=== PATIENT | male | born 1980 | race Caucasian/White ===

== ENCOUNTER 2023-02-02 02:48 | Outpatient (CLI) | payer SELFPAY | END 2023-02-02 02:49 | disposition critical access hospital (66) | LOC: EMS 02:48 | DX: S59.902A Unspecified injury of left elbow, initial encounter (principal); W06.XXXA Fall from bed, initial encounter; Y92.89 Other specified places as the place of occurrence of the external cause | CPT/HCPCS: A0425; A0429 ==

== ENCOUNTER 2023-02-02 03:07 | Emergency (ER) | payer SELFPAY ==
--- NOTE | 2023-02-02 03:19 | ED Physician Documentation ---
History of Present Illness - Stated complaint Stated Complaint: L ELBOW INJ - Chief complaint Chief Complaint: Trauma Ext - History obtained from History obtained from: Patient, EMS - Additonal information Additional information: 42yM bibems from [facility] where he has been undergoing detox X1 wk and has been slightly unsteady on feet. patient hit his left elbow against a concrete wall around midnight tonight and has had swelling and mild pain to the area. no pain with rom. PD PAST MEDICAL HISTORY - Present Medications Home Medications: Ambulatory Orders Medication Instructions Recorded Confirmed Gabapentin [Neurontin] 300 mg PO TID 02/02/23 02/02/23 LORazepam [Ativan] 1 - 2 tab PO QID 02/02/23 02/02/23 Lisinopril [Zestril] 20 mg PO DAILY 02/02/23 02/02/23 Multivitamin 1 tab PO DAILY 02/02/23 02/02/23 - Allergies Allergies/Adverse Reactions: Allergies Allergy/AdvReac Type Severity Reaction Status Date / Time amoxicillin Allergy Unknown Verified 02/02/23 03:20 PD ED PE NORMAL - Vitals Vital signs reviewed: Yes - General General: Alert and oriented X 3, No acute distress, Well developed/nourished - HEENT HEENT: Atraumatic, PERRL, EOMI - Neck Neck: Supple, no meningeal sign - Derm Derm: Normal color, Warm and dry - Extremities Extremities: Other (L elbow with palpable bursitis. nontender to palpation along elbow, forearm or humerus. nontender with rom of L elbow. 2+ radial pulse LUE. normal sensation, movement, cap refill) Results - Vitals Vitals: Vital Signs - 24 hr 02/02/23 02/02/23 03:05 04:01 Temperature 37.0 C Heart Rate 90 92 Respiratory 16 Rate Blood Pressure 138/97 H 137/93 H O2 Saturation 97 95 Oxygen O2 Source Room air - Labs Labs: Laboratory Tests 02/02/23 02/02/23 03:16 03:16 WBC 4.6 L RBC 4.11 L Hgb 13.4 L Hct 38.9 L MCV 94.6 H MCH 32.6 H MCHC 34.4 RDW 13.2 Plt Count 92 L MPV 10.5 Neut # (Auto) 3.4 Lymph # (Auto) 0.6 L [place] # (Auto) 0.5 Eos # (Auto) 0.1 Baso # (Auto) 0.0 Absolute Nucleated RBC 0.00 Nucleated RBC % 0.0 Sodium 134 L Potassium 3.7 Chloride 96 L Carbon Dioxide 25 Anion Gap 13.0 BUN 13 Creatinine 0.8 Estimated GFR (MDRD) 106 Glucose 113 H Calcium 10.2 Magnesium 1.5 L Total Bilirubin 2.0 H AST 108 H ALT 65 H Alkaline Phosphatase 78 Total Protein 7.5 Albumin 4.7 Globulin 2.8 Albumin/Globulin Ratio 1.7 Lipase 41 PD Medical Decision Making - ED course ED course: 42yM presents to the ED with L elbow swelling, pain after hitting it on concrete wall tonight. xrays show no break or dislocation. Traumatic olecranon bursitis on exam. Silvio wrap applied and recommended symptomatic care, RICE. return precautions given. Departure - Departure Disposition: 01 Home, Self Care Clinical Impression: Olecranon bursitis Condition: Stable Instructions: ED Bursitis, ED RICE Follow-Up: Rigo Suárez MD [Provider Admit Priv/Credential] - Comments: You were seen in the emergency department for elbow injury. You have bursitis, which in this case is inflammation of the pouch of fluid over your elbow called the olecrenon bursa, caused by the bump against the wall. This can be treated with silvio wrap, rest, ice, and elevating. You should take ibuprofen 600 mg every 6 hours as needed for pain and swelling. Please follow-up with orthopedics and return to the emergency department if you have any new or worsening symptoms or other concerns. Forms: PCP List
[2023-02-02 03:38] LABS: BASOPHILS % (AUTO) 0.9 %; EOSINOPHILS # (AUTO) 0.1 10^3/uL (0.0-0.7); HCT - HEMATOCRIT 38.9 % (42.0-52.0); HGB - HEMOGLOBIN 13.4 g/dL (14.0-18.0); LYMPHOCYTES # (AUTO) 0.6 10^3/uL (1.5-3.5); LYMPHOCYTES % (AUTO) 12.6 %; MEAN CORPUSCULAR HEMOGLOBIN 32.6 pg (27.0-31.0); MEAN CORPUSCULAR HGB CONC 34.4 g/dL (32.0-36.0); MEAN CORPUSCULAR VOLUME 94.6 fL (80.0-94.0); MEAN PLATELET VOLUME 10.5 fL (7.4-11.4); MONOCYTES # (AUTO) 0.5 10^3/uL (0.0-1.0); MONOCYTES % (AUTO) 11.3 %; NEUTROPHILS # (AUTO) 3.4 10^3/uL (1.5-6.6); NEUTROPHILS % (AUTO) 72.8 %; PLT - PLATELET COUNT 92 10^3/uL (130-450); RED BLOOD COUNT 4.11 10^6/uL (4.70-6.10); RED CELL DISTRIBUTION WIDTH 13.2 % (12.0-15.0); WHITE BLOOD COUNT 4.6 x10^3/uL (4.8-10.8)
[2023-02-02 04:32] LABS: ALBUMIN 4.7 g/dL (3.2-5.5); ALBUMIN/GLOBULIN RATIO 1.7 (1.0-2.2); CALCIUM 10.2 mg/dL (8.5-10.3); CREATININE 0.8 mg/dL (0.6-1.3); MAGNESIUM 1.5 mg/dL (1.7-2.3); POTASSIUM 3.7 mmol/L (3.5-4.5); TOTAL PROTEIN 7.5 g/dL (6.4-8.9)
[2023-02-02 06:37] VITALS: BP 135/96; O2SAT 94
--- NOTE | 2023-02-02 07:57 | XRAY Report ---
PROCEDURE: Elbow 3 View LT INDICATIONS: L elbow swelling TECHNIQUE: 3 views of the elbow were acquired. COMPARISON: None. FINDINGS: Bones: No fractures or dislocations. No suspicious bony lesions. Soft tissues: No effusion. No suspicious soft tissue calcifications or masses. Soft tissue swellin g over the olecranon. IMPRESSION: 1. No acute bony abnormality. 2. Soft tissue swelling over olecranon. Findings are concordant with preliminary interpretation provided by [facility]. Reviewed by: Tammy Brannon MD on 02/02/2023 7:55 AM PST Approved by: Tammy Brannon MD on 02/02/2023 7:55 AM PST Station ID: [id number]
== END 2023-02-02 06:36 | disposition home or self-care (01) ==
LOC: ED 03:07
DX: M70.22 Olecranon bursitis, left elbow (principal)
CPT/HCPCS: 36415; 80053; 83690; 83735; 85025; 99283; 99284

== ENCOUNTER 2023-02-02 22:32 | Outpatient (CLI) | payer SELFPAY | END 2023-02-02 22:33 | disposition left against medical advice (07) | LOC: EMS 22:32 | DX: R41.82 Altered mental status, unspecified (principal); F10.20 Alcohol dependence, uncomplicated; R25.1 Tremor, unspecified ==